=== PATIENT | female | born 1965 | race African-American/Black ===

== ENCOUNTER 2016-06-10 11:27 | Observation (INO) ==
--- NOTE | 2016-06-10 11:57 | EKG Report ---
Stationary ECG Study [facility] ER Test Date: 06/10/2016 11:34:34 AM Pat Name: LAURO GARZA Department: Room: Gender: F Soft Iron Inspector: : 1965 Requested by: Joe Sales Order Number: [id number] Reading MD: JOHN BIRCH Intervals [place] Rate: 64 P: 43 IN: 145 QRS: 56 QRSD: 79 T: 47 QT: 379 QTc: 388 Interpretive Statements SINUS RHYTHM Electronically Signed On 06-11-16 12:27:08 MECHANICAL TECHNICAL SERVICE SPECIALIST by JOHN BIRCH [email or web address]
[2016-06-10] MEDS ORDERED: ALUM/MAG/SIMETH/LIDO VISC 1:1 30 ML BOTTLE PO STA (12:23)
[2016-06-10] MEDS ORDERED: ASPIRIN 325 MG TABLET PO STA (12:23)
[2016-06-10] MEDS ORDERED: ONDANSETRON 4 MG/2 ML VIAL IV STA (12:23)
[2016-06-10] MEDS ORDERED: NITROGLYCERIN 2% OINT 1 INCH/GM PACK TOP STA (12:23)
[2016-06-10] MEDS ORDERED: KETOROLAC 30 MG/1 ML VIAL IV STA (12:23)
--- NOTE | 2016-06-10 12:28 | Emergency Department Note ---
Landon Aponte Meredith, am scribing for, and in the presence of, Joe Soria MD 12:15. Yang Aponte Charles R, MD, personally performed the services described in this documentation, ascribed by Gianna Navarrete in my presence, and it is both accurate and complete . Arrival - Arrival Chief Complaint: Chest Pain Stated Complaint: chest pain going up in throat neck and jaw and ear ED Nursing Triage Note: Pt states that she is having right sided chest pain with radiation to the jaw area onset last night - pt states that the pain got worse this am - pt denies SOB but states that the pain is worse with deep breath Mode of Arrival: Ambulatory Limitations: No Limitations Source: Patient, RN Notes Reviewed - History of Present Illness HPI Narrative: Pt is a 50 y/o black female reporting to the ED with c/o right-sided chest pain with radiation to the jaw which onset last night. Her pain worsened this morning , prompting her visit. She confirms exacerbation of pain with deep inspiration and exertion but denies any shortness of breath, diaphoresis, or nausea. Pt is a current everyday smoker and drinker. Onset (ago): hour(s) Date of Last Menstrual Period: 3 weeks Allergies/Adverse Reactions: Allergies Allergy/AdvReac Type Severity Reaction Status Date / Time No Known Allergies Allergy Verified 06/10/16 11:31 Home Medications: Home Medications Medication Instructions Recorded Confirmed Type Doxycycline Hyclate 100 mg PO DAILY 06/10/16 06/10/16 History hydrOXYzine HCL TAB [Atarax Tab] 10 mg PO QID 06/10/16 06/10/16 History Review of System - Review of System 12 point system: reviewed and no additional remarkable complaints except as stated - Review of System Constitutional: Present: as per HPI. Absent: diaphoresis Respiratory: Present: as per HPI, other (denies SOB) Cardiovascular: Present: as per HPI, chest pain Gastrointestinal: Present: as per HPI. Absent: nausea Medical,Surgical,& Family Hx - Surgical History Abdominal Surgeries: Surgical HX of: Cholecystectomy (2016) Reproductive Surgeries: Surgical HX of;: Section (2004) - Social History Smoking Status: Current every day smoker Frequency of Alcohol Use: Frequently Type of Drug Use: None Exam Vital Signs: Vital Signs Temperature 98.4 F 06/10/16 11:32 Pulse Rate 70 06/10/16 11:32 Respiratory Rate 18 06/10/16 11:41 Blood Pressure 116/72 06/10/16 11:32 O2 Sat by Pulse Oximetry 97 06/10/16 11:32 - General General appearance: alert, in no apparent distress - Head Head exam: Present: atraumatic, normocephalic - Eye Eye exam: Present: normal appearance, PERRL, EOMI - ENT ENT exam: Present: mucous membranes moist, normal external ear exam - Neck Neck exam: Present: full ROM, trachea midline. Absent: tenderness, meningismus , lymphadenopathy, thyromegaly - Chest Chest inspection: Present: symmetric chest wall rise, tenderness (tenderness to palpation just right of the lower sternum). Absent: rash - Respiratory Respiratory exam: Present: normal lung sounds bilaterally. Absent: respiratory distress - Cardiovascular Cardiovascular exam: Present: regular rate, normal rhythm, normal heart sounds. Absent: murmur, rubs, gallop - Abdominal Exam Abdominal exam: Present: soft, normal bowel sounds. Absent: distention, tenderness - Extremities Exam Extremities exam: Present: full ROM, normal capillary refill. Absent: tenderness, pedal edema, calf tenderness - Back Exam Back exam: Present: full ROM. Absent: tenderness - Neurological Exam Neurological exam: Present: alert, oriented X3, CN II-XII intact. Absent: motor sensory deficit - Psychiatric Psychiatric exam: Present: normal affect, normal mood - Skin Skin exam: Present: warm, dry, intact, normal color Course - Consultations Consultation #1: Dr. Wells hospitalist will admit patient Time: 14:03 Results - Labs CBC & BMP: 06/10/16 12:50 06/10/16 12:50 Lab Results: I have reviewed the patients labs Labs: Laboratory Tests 06/10/16 12:50 WBC 13.3 RBC 5.85 H Hgb 13.0 Hct 42.0 MCV 71.8 L MCH 22 L MCHC 31.0 L Plt Count 399 Lymph % (Auto) 18.2 L Neut # (Auto) 9.8 H [place] # (Auto) 0.9 H Laboratory Tests 06/10/16 12:50 INR 1.0 PT Patient/Control Mix 10.0 D-Dimer, Quantitative <= 0.5 Laboratory Tests 06/10/16 12:50 Troponin I < 0.015 Laboratory Tests 0106/10/16 06/10/16 12:50 12:50 12:50 Sodium 142 Potassium 4.3 Chloride 106 Carbon Dioxide 29 BUN 11 Creatinine 0.80 Troponin I < 0.015 B-Natriuretic Peptide 38 Globulin 3.9 H Albumin/Globulin Ratio 0.8 L Lipase 77.0 Disposition Clinical Impression: Atypical chest pain Case discussed with: patient Disposition: Still a Patient Condition: Stable Time of Disposition: 14:03
[2016-06-10] MEDS ORDERED: ALUM/MAG/SIMETH/LIDO VISC 1:1 30 ML BOTTLE PO ONE (12:30)
[2016-06-10] MEDS ORDERED: ASPIRIN 325 MG TABLET ONE (12:30)
[2016-06-10] MEDS ORDERED: NITROGLYCERIN 2% OINT 1 INCH/GM PACK TOP ONE (12:30)
[2016-06-10] MEDS ORDERED: KETOROLAC 30 MG/1 ML VIAL ONE (13:00)
[2016-06-10] MEDS ORDERED: ONDANSETRON 4 MG/2 ML VIAL ONE (13:00)
[2016-06-10 13:06] LABS: Basophils % 0.3 % (0.0-0.8); Eosinophils # 0.1 10*3/uL (0.0-0.87); Eosinophils % 0.9 % (0.00-10.9); Immature Granulocytes % 0.5 %; Immature Granulocytes Absolute 0.07 #; Lymphocytes # 2.4 10*3/uL (1.4-4.0); Lymphocytes % 18.2 % (21.3-54.2); Mean Corpuscular Hemoglobin 22 PG (27-34); Mean Corpuscular Volume 71.8 FL (87-102); Mean Platelet Volume 10.8 FL (9.6-12.0); Monocytes # 0.9 10*3/uL (0.11-0.8); Monocytes % 6.4 % (1.7-12.7); Neutrophils # 9.8 10*3/uL (1.4-7.4); Neutrophils % 73.7 % (38.7-73.9); Platelet Count 399 10*3/uL (130-400); Red Blood Count 5.85 10*6/uL (3.8-5.5); Red Cell Distribution Width 16.6 % (9.3-17.3); White Blood Count 13.3 10*3/uL (4.5-13.71)
[2016-06-10 13:17] LABS: D-Dimer <= 0.5 MG/L FEU
[2016-06-10 13:47] LABS: Albumin 3.5 G/DL (3.4-5.0); Bilirubin,Total 0.5 MG/DL (0.2-1.0); Calcium 8.8 MG/DL (8.5-10.1); Magnesium 2.1 MG/DL (1.8-2.4); Osmolality,Calculated 280.1 MOS/KG (273-304); Potassium 4.3 MMOL/L (3.5-5.1); Total Protein 7.4 G/DL (6.4-8.3)
[2016-06-10] MEDS ORDERED: ACETAMINOPHEN 325 MG TABLET PO PRN (14:12)
[2016-06-10] MEDS ORDERED: MORPHINE 2 MG/1 ML SYRINGE IV PRN (14:12)
[2016-06-10] MEDS ORDERED: ONDANSETRON 4 MG/2 ML VIAL IV PRN (14:12)
--- NOTE | 2016-06-10 14:43 | Hospitalist History & Physical ---
Assessment and Plan (1) Chest pain Status: Acute Assessment and plan: she gives some typical and atypical symptoms for her pain. Some have her symptoms may be GI related as per her history she likely has GERD I will admit to r/o cardiac origin as she does have risk factors of Obesity & smoker she has been given ASA, will give Lovenox and repeat CE, EKG is normal, consult Cards for further risk assessment as she might need NM stress testing will start protonix for possible GI cause Current Visit: Yes (2) GERD (gastroesophageal reflux disease) Status: Acute Assessment and plan: given her history she likely has GERD, start PPI as she uses Tums frequently Current Visit: Yes (3) Obesity Status: Chronic Current Visit: Yes (4) Cigarette smoker Status: Chronic Assessment and plan: counseled and offered cessation. Current Visit: Yes (5) Consumes three beers daily Status: Chronic Current Visit: Yes History of Present Illness Chief complaint: chest pain History of present illness: Ms. Conner is a 50 year old female with no significant past medical history other than acid reflux presents complaining of lower sub-sternum chest pain. She describes as a pressure with radiation up her left chest into her neck and left jaw with a metallic like taste under her tongue. Symptoms started last night while watching TV and lasted about 10 minutes. Again this morning around 10 am she started having symptoms while at the store which lasted longer. She did experience some nausea this morning but no vomiting. She says this feels different from her normal acid reflux which is resolved with Tums. She denies previous history and no known family history of heart disease at an early age. She does smoke about 1 pack of cigarettes every 2 days and drinks 2-3 tall cans of beer daily. Home Medications Medication Instructions Recorded Confirmed Type Doxycycline Hyclate 100 mg PO DAILY 06/10/16 06/10/16 History hydrOXYzine HCL TAB [Atarax Tab] 10 mg PO QID 06/10/16 06/10/16 History Allergies Allergy/AdvReac Type Severity Reaction Status Date / Time No Known Allergies Allergy Verified 06/10/16 11:31 Medical,Surgical,& Family Hx - Medical History Gastrointestinal: History of: GI Problems (Acid Reflux) - Surgical History Abdominal Surgeries: Surgical HX of: Cholecystectomy (2015) Reproductive Surgeries: Surgical HX of;: Section (2004) - Family History Family History: Reports;: Family Hypertension - Social History Smoking Status: Current every day smoker Have you smoked in the last 12 months: Yes Time spent discussing smoking cessation with patient: more than 10 minutes Frequency of Alcohol Use: Frequently Type of Drug Use: None Marital Status: Life Partner Lives With:: Children Functional capacity: independent ambulation - Constitutional Constitutional: Present: as per HPI - EENT Eyes: Present: as per HPI - Cardiovascular Cardiovascular: Present: chest pain at rest, radiating jaw, neck or arm pain, palpitations - Respiratory Respiratory: Present: as per HPI - Gastrointestinal Gastrointestinal: Present: dyspepsia - Genitourinary Genitourinary: Present: as per HPI - Musculoskeletal Musculoskeletal: Present: as per HPI - Neurological Neurological: Present: as per HPI - Psychiatric Psychiatric: Present: as per HPI - Endocrine Endocrine: Present: as per HPI - Hematologic/Lymphatic Hematologic/Lymphatic: Present: as per HPI Exam - Constitutional Vitals: Period Temp Pulse Resp BP Sys/Bronson Pulse Ox Last 24 Hr 98.4 F 60-70 18-20 110-126/57-88 97-100 General appearance: morbidly obese - Head Head exam: Present: normocephalic, atraumatic - Eye Eye exam: Present: EOMI Pupils: Present: KISHORE - ENT ENT exam: Present: normal exam - Neck Neck exam: Present: normal inspection - Respiratory Respiratory exam: Present: clear to auscultation bilaterally - Cardiovascular Cardiovascular exam: Present: regular rate and rhythm (normal S1 S2) - GI/Abdominal GI/Abdominal exam: Present: normal bowel sounds, soft (obese) - Extremities Exam Extremities exam: Present: full ROM - Neurological Exam Neurological exam: Present: alert, oriented X3, normal gait, CN II-XII intact - Psychiatric Psychiatric exam: Present: normal affect, normal mood - Skin Skin exam: Present: normal color, warm, dry, intact Results - Labs CBC & BMP: 06/10/16 12:50 06/10/16 12:50 - EKG EKG results: sinus rhythm, normal axis, normal QRS EKG shows: sinus rhythm - Diagnostic Findings Procedure: Chest x-ray: image reviewed by me (normal heart size, lungs clear), KUB x-ray: report reviewed by me (scattered air fluid levels gas and stool in colon)
[2016-06-10] MEDS: SODIUM CHLORIDE 0.9% 1,000 ML IV SCH (16:30)
[2016-06-10] MEDS: PANTOPRAZOLE 40 MG TABLET PO SCH (16:30)
[2016-06-10] MEDS: ENOXAPARIN 40 MG/0.4 ML SYRINGE SUBCUT SCH (16:30)
--- NOTE | 2016-06-10 16:56 | Cardiology Consult Note ---
History of Present Illness - Data of Consult Patient: new to practice Consult date: 06/10/16 - Consult Narrative History of present illness: Cardiology consult 50-year-old woman admitted with epigastric pain that occurred while drinking beer and watching television. She took Mylanta and Tums without relief and came to the hospital for evaluation. The patient has chronic GE reflux symptoms. Barbecue sauce, onions, [place] peppers, chili, pizza, oranges causes heartburn. The EKG shows normal sinus rhythm with preserved airways and mild ST -T wave changes. Chest x-ray is negative. The patient is currently being treated for scabies with doxycycline 100 mg daily and Atarax 10 mg every 6 hours for itching first troponin is negative d-dimer is negative. The patient does abuse caffeine. She has 8-10 crops of caffeinated coffee every morning and 1 or 2 glasses of iced tea with lunch and she enjoys to binge on chocolate. She also has 3 24 ounce cans of beer nightly and more on the weekends. There is no history of DTs or pancreatitis. She denies melena. No history of peptic ulcer disease. The patient smokes 1 pack per day, more in the weekend and has been swelling since age 22. She is 5 feet 1 inches tall weighs 214 pounds. Weight is been stable. No history of hypertension. No history of stroke. No history of diabetes. She sleeps on one pillow and rarely has nocturia. She does have right knee osteoarthritis and has had her knee injected twice. There is no history of exertional angina. There is no history of syncope or sustained palpitations. No history of heart failure. 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 Her mother had hypertension from dementia age 71. Her father had hypertension and diabetes and from heart failure age 87. She has 8 siblings. 2 brothers have hypertension. One brother has diabetes. One sister has diabetes. Another sister has rheumatoid arthritis. Status post laparoscopic cholecystectomy at [place] August 2015. White count 13.3 Hemoglobin 13.0 hematocrit 42.0 MCV 71.8 INR 1.0 Sodium 142 potassium 4.3 chloride 106 CO2 2911 creatinine 0.80 magnesium 2.1 Blood pressure 126/82 pulse is 78 and regular respirations 16 early arcus no xanthelasma flat neck veins no carotid bruit clear lungs. Regular rhythm. No murmur or gallop. No chest wall tenderness to palpation. Abdomen obese soft benign. Femoral pulses 2+ without bruits of pulses 2+ no edema. Impression Chronic GE reflux using Mylanta and Tums as needed Atypical chest pain Longtime tobacco abuse Scabies currently under treatment with doxycycline and Atarax Caffeine abuse EtOH abuse Obesity 5 feet 1 inches tall, 214 pounds Right knee osteoarthritis Status post laparoscopic cholecystectomy August 2015 at [place] Plan Routine GE reflux precautions reviewed Protonix 40 mg daily Decrease alcohol and caffeine intake these relax the lower esophageal stricture and encourage reflux symptoms Echo Doppler Patient wants to go home tomorrow so she can work on Sunday. Her symptoms are atypical and will schedule outpatient nuclear stress test at the office CC: Rebekah Wells MD - Home Medications and Allergies Home Medications: Home Medications Medication Instructions Recorded Confirmed Type Doxycycline Hyclate 100 mg PO DAILY 06/10/16 06/10/16 History hydrOXYzine HCL TAB [Atarax Tab] 10 mg PO QID 06/10/16 06/10/16 History Allergies/Adverse Reactions: Allergies Allergy/AdvReac Type Severity Reaction Status Date / Time No Known Allergies Allergy Verified 06/10/16 11:31 Medical,Surgical,& Family Hx - Medical History Gastrointestinal: History of: GERD, GI Problems (Acid Reflux) - Surgical History Abdominal Surgeries: Surgical HX of: Cholecystectomy (2015) Reproductive Surgeries: Surgical HX of;: Section (2004) - Family History Family History: Reports;: Family Hypertension - Social History Smoking Status: Current every day smoker Frequency of Alcohol Use: Frequently Type of Drug Use: None Physical Examination Vital Signs Temp Pulse Resp BP Pulse Ox 98.4 F 70 20 116/72 97 06/10/16 11:32 06/10/16 11:32 06/10/16 11:32 06/10/16 11:32 06/10/16 11:32 Result/EKG - Labs CBC & BMP: 06/10/16 12:50 06/10/16 12:50 Labs: Laboratory Results - last 24 hr 06/10/16 16:02 Troponin I < 0.015 Specialty Discharge - Follow Up or Referrals - Discharge Medications No Action hydrOXYzine HCL TAB [Atarax Tab] 10 mg PO QID Doxycycline Hyclate 100 mg PO DAILY
--- NOTE | 2016-06-10 18:37 | EKG Report ---
Stationary ECG Study [facility] ER Test Date: 06/10/2016 3:12:15 PM Pat Name: LAURO GARZA Department: Room: 275 Gender: F Cue Selector: KD : 1965 Requested by: Joe Sales Order Number: [id number] Reading MD: JOHN BIRCH Intervals [place] Rate: 60 P: 46 GA: 153 QRS: 46 QRSD: 75 T: 42 QT: 400 QTc: 401 Interpretive Statements SINUS RHYTHM Electronically Signed On 06-11-16 12:32:34 ICHTHYOLOGY TEACHER by JOHN BIRCH [id number]
--- NOTE | 2016-06-10 18:38 | XRay Report ---
History: Chest pain. History of cigarette smoking Date: 06/10/2016 at 12:40 PM Study: Chest x-ray PA lateral Comparison exam: Chest x-ray September 20, 2014 The cardiac silhouette is not enlarged. There is no mediastinal mass. There is no pulmonary vascular engorgement. There is no pleural effusion. The lungs are well expanded and generally clear. The osseous structures are unremarkable Impression: No acute cardiopulmonary process PROCEDURE INTERPRETED AT [facility] DEPARTMENT OF RADIOLOGY Final Report Signed by: Dr. Jody Siegel
[2016-06-11 05:00] LABS: Basophils % 0.3 % (0.0-0.8); Eosinophils # 0.1 10*3/uL (0.0-0.87); Eosinophils % 0.9 % (0.00-10.9); Hematocrit 37.6 VOL% (35.7-47.0); Hemoglobin 11.5 GM/DL (12.0-16.0); Immature Granulocytes % 0.4 %; Immature Granulocytes Absolute 0.05 #; Lymphocytes # 2.7 10*3/uL (1.4-4.0); Mean Corpuscular HGB Conc 30.6 GM/DL (32-36); Mean Corpuscular Hemoglobin 22 PG (27-34); Mean Corpuscular Volume 72.3 FL (87-102); Mean Platelet Volume 10.8 FL (9.6-12.0); Monocytes # 1.1 10*3/uL (0.11-0.8); Monocytes % 7.5 % (1.7-12.7); Neutrophils # 10.1 10*3/uL (1.4-7.4); Neutrophils % 71.9 % (38.7-73.9); Platelet Count 368 10*3/uL (130-400); Red Cell Distribution Width 16.1 % (9.3-17.3)
[2016-06-11 05:36] LABS: Risk Ratio 3.43; VLDL CHOLESTEROL 21.2 MG/DL
--- NOTE | 2016-06-11 07:54 | Hospitalist Progress Note ---
Assessment and Plan (1) Atypical chest pain Status: Acute Assessment and plan: Patient wants to stay and have her nuclear medicine test done tomorrow morning Current Visit: Yes Hospitalist: Subjective Interval history: Patient without complaints right now, so she wants to stay here and have her nuclear scan done tomorrow Exam - Constitutional Vitals: Period Temp Pulse Resp BP Sys/Bronson Pulse Ox Last 24 Hr 97.1 F-98.9 F 58-70 18-20 110-134/55-85 100-100 Exam: Constitutional: General appearance is normal Eyes: Pupils equal round react to light and accommodation conjunctiva and lids are normal Neck: supple without masses Respiratory: Respiratory effort is normal. Lungs are clear to auscultation. Resonant to percussion. Cardiac: Regular rate and rhythm without murmur rub or gallop. PMI at the midclavicular line by palpation. Carotid arteries 2+ palpation no bruits GI: Bowel sounds normoactive, no tenderness or rebound tenderness, no organomegaly Extremities: no clubbing cyanosis or edema Results - Labs CBC & BMP: 06/11/16 04:09 06/10/16 12:50 Specialty Discharge - Follow Up or Referrals - Discharge Medications No Action hydrOXYzine HCL TAB [Atarax Tab] 10 mg PO QID Doxycycline Hyclate 100 mg PO DAILY
[2016-06-11] MEDS: PANTOPRAZOLE 40 MG TABLET PO SCH (08:30)
--- NOTE | 2016-06-11 09:30 | Cardiology Progress Note ---
Cardiology - PN: Subj Interval history: Cardiology note 50-year-old woman admitted with GE reflux symptoms and atypical chest pain. Patient has decided to stay to have her nuclear stress test tomorrow. She states that if she goes home she will not come back. Telemetry shows steady sinus rhythm. O2 sat 98% on room air. Decreased breath sounds but clear. Regular rhythm. No murmur or gallop. No chest wall tenderness to palpation. Abdomen soft and nontender. Troponin negative 3. Hemoglobin 11.5 hematocrit 37.6 MCV 72 White count 14.0 Impression GE reflux symptoms. Atypical chest pain. Active smoker. Status post laparoscopic cholecystectomy August 2015 at [place] 5 feet 1 inches tall, 214 pounds Caffeine abuse EtOH abuse Scabies Plan Protonix 40 mg daily Routine GE reflux precautions reviewed Echo Doppler Lexiscan cardiac stress test 8 AM tomorrow. I have called nuclear medicine to see if it can be done later today but they have not yet returned my call. Exam (Progress Note) - Constitutional Vitals: Period Temp Pulse Resp BP Sys/Bronson Pulse Ox Last 24 Hr 97.1 F-98.9 F 58-70 18-20 110-134/55-85 95-100 Result/EKG - Labs CBC & BMP: 06/11/16 04:09 06/10/16 12:50 Labs: Laboratory Results - last 24 hr 06/10/16 06/10/16 06/11/16 16:02 18:37 04:09 WBC 14.0 H RBC 5.20 Hgb 11.5 L Hct 37.6 MCV 72.3 L MCH 22 L MCHC 30.6 L RDW 16.1 Plt Count 368 MPV 10.8 Neut % (Auto) 71.9 Lymph % (Auto) 19.0 L [place] % (Auto) 7.5 Eos % (Auto) 0.9 Baso % (Auto) 0.3 Neut # (Auto) 10.1 H Lymph # (Auto) 2.7 [place] # (Auto) 1.1 H Eos # (Auto) 0.1 Baso # (Auto) 0.0 Immature Gran % 0.4 Nucleated RBC % 0.0 Immature Gran # 0.05 Nucleated RBCs # 0.00 Troponin I < 0.015 < 0.015 Triglycerides Cholesterol LDL Cholesterol VLDL Cholesterol HDL Cholesterol Heart Disease Risk Ratio 06/11/16 06/11/16 04:09 04:09 WBC RBC Hgb Hct MCV MCH MCHC RDW Plt Count MPV Neut % (Auto) Lymph % (Auto) [place] % (Auto) Eos % (Auto) Baso % (Auto) Neut # (Auto) Lymph # (Auto) [place] # (Auto) Eos # (Auto) Baso # (Auto) Immature Gran % Nucleated RBC % Immature Gran # Nucleated RBCs # Troponin I < 0.015 Triglycerides 106 Cholesterol 175 LDL Cholesterol 111.0 VLDL Cholesterol 21.2 HDL Cholesterol 51 Heart Disease Risk Ratio 3.43 Specialty Discharge - Follow Up or Referrals - Discharge Medications No Action hydrOXYzine HCL TAB [Atarax Tab] 10 mg PO QID Doxycycline Hyclate 100 mg PO DAILY
[2016-06-11] MEDS: SODIUM CHLORIDE 0.9% 1,000 ML IV SCH (11:38)
[2016-06-11 13:12] VITALS: BP 110/76
--- NOTE | 2016-06-11 14:34 | Cardiology Progress Note ---
Cardiology - PN: Subj Interval history: Cardiology note Normal Lexiscan Cardiolite stress test today. No chest pain or diagnostic EKG changes and tomographic imaging normal. Ventricular function well preserved, ejection fraction 62%. This is a low risk scan. Noncardiac chest pain. The patient has been reassured. Plan Home today okay with me. Continue Protonix 40 mg daily. Routine GE reflux precautions reviewed. I called Dr. Lundy the stress test results. Exam (Progress Note) - Constitutional Vitals: Period Temp Pulse Resp BP Sys/Bronson Pulse Ox Last 24 Hr 97.1 F-98.9 F 58-100 18-20 110-134/55-85 95-100 Result/EKG - Labs CBC & BMP: 06/11/16 04:09 06/10/16 12:50 Labs: Laboratory Results - last 24 hr 06/10/16 06/10/16 06/11/16 16:02 18:37 04:09 WBC 14.0 H RBC 5.20 Hgb 11.5 L Hct 37.6 MCV 72.3 L MCH 22 L MCHC 30.6 L RDW 16.1 Plt Count 368 MPV 10.8 Neut % (Auto) 71.9 Lymph % (Auto) 19.0 L [place] % (Auto) 7.5 Eos % (Auto) 0.9 Baso % (Auto) 0.3 Neut # (Auto) 10.1 H Lymph # (Auto) 2.7 [place] # (Auto) 1.1 H Eos # (Auto) 0.1 Baso # (Auto) 0.0 Immature Gran % 0.4 Nucleated RBC % 0.0 Immature Gran # 0.05 Nucleated RBCs # 0.00 Troponin I < 0.015 < 0.015 Triglycerides Cholesterol LDL Cholesterol VLDL Cholesterol HDL Cholesterol Heart Disease Risk Ratio 06/11/16 06/11/16 04:09 04:09 WBC RBC Hgb Hct MCV MCH MCHC RDW Plt Count MPV Neut % (Auto) Lymph % (Auto) [place] % (Auto) Eos % (Auto) Baso % (Auto) Neut # (Auto) Lymph # (Auto) [place] # (Auto) Eos # (Auto) Baso # (Auto) Immature Gran % Nucleated RBC % Immature Gran # Nucleated RBCs # Troponin I < 0.015 Triglycerides 106 Cholesterol 175 LDL Cholesterol 111.0 VLDL Cholesterol 21.2 HDL Cholesterol 51 Heart Disease Risk Ratio 3.43 Specialty Discharge - Follow Up or Referrals - Discharge Medications No Action hydrOXYzine HCL TAB [Atarax Tab] 10 mg PO QID Doxycycline Hyclate 100 mg PO DAILY
[2016-06-11] MEDS ORDERED: REGADENOSON 0.4 MG/5 ML SYRINGE IV ONE (14:37)
--- NOTE | 2016-06-11 14:46 | Discharge Summary ---
Hospital Course - Hospital Course Hospital Course: Patient with atypical chest pain underwent nuclear medicine scan today Dr. ocampo did a treadmill today call me the results and patient was ready to go home follow-up with her primary care doctor. He recommended she go home on some Protonix because she may very well have reflux as a cause of her symptoms Diagnosis - Discharge Diagnosis (1) Atypical chest pain Status: Acute Specialty Discharge - Follow Up or Referrals - Discharge Medications No Action hydrOXYzine HCL TAB [Atarax Tab] 10 mg PO QID Doxycycline Hyclate 100 mg PO DAILY Discharge Plan - Discharge Data Disposition: Disch To Home/Self Care Condition at Discharge: Stable Discharge Diet: advance to your usual diet Activity: resume usual activities as tolerated Hygiene: no restrictions Weight Bearing at Discharge: full weight bearing - Discharge Medications New Pantoprazole Tab [Protonix Tab] 40 mg PO DAILY #30 tablet Continue hydrOXYzine HCL TAB [Atarax Tab] 10 mg PO QID Doxycycline Hyclate 100 mg PO DAILY - Follow Up or Referral - Forms/Instructions Exam - Constitutional Vitals: Period Temp Pulse Resp BP Sys/Bronson Pulse Ox Last 24 Hr 97.1 F-98.9 F 58-100 18-20 110-134/55-85 95-100 Exam: Constitutional: General appearance is normal Eyes: Pupils equal round react to light and accommodation conjunctiva and lids are normal Neck: supple without masses Respiratory: Respiratory effort is normal. Lungs are clear to auscultation. Resonant to percussion. Cardiac: Regular rate and rhythm without murmur rub or gallop. PMI at the midclavicular line by palpation. Carotid arteries 2+ palpation no bruits GI: Bowel sounds normoactive, no tenderness or rebound tenderness, no organomegaly Extremities: no clubbing cyanosis or edema Discharge Results Procedures and tests throughout hospitalization: Pending Orders 06/11/16 NM olena perf SPECT rest or str Routine Labs on day of discharge: Labs from last 24 hours 06/11/16 06/11/16 06/11/16 04:09 04:09 04:09 WBC 14.0 H RBC 5.20 Hgb 11.5 L Hct 37.6 MCV 72.3 L MCH 22 L MCHC 30.6 L RDW 16.1 Plt Count 368 MPV 10.8 Neut % (Auto) 71.9 Lymph % (Auto) 19.0 L [place] % (Auto) 7.5 Eos % (Auto) 0.9 Baso % (Auto) 0.3 Neut # (Auto) 10.1 H Lymph # (Auto) 2.7 [place] # (Auto) 1.1 H Eos # (Auto) 0.1 Baso # (Auto) 0.0 Immature Gran % 0.4 Nucleated RBC % 0.0 Immature Gran # 0.05 Nucleated RBCs # 0.00 Troponin I < 0.015 Triglycerides 106 Cholesterol 175 LDL Cholesterol 111.0 VLDL Cholesterol 21.2 HDL Cholesterol 51 Heart Disease Risk Ratio 3.43 06/10/16 06/10/16 18:37 16:02 WBC RBC Hgb Hct MCV MCH MCHC RDW Plt Count MPV Neut % (Auto) Lymph % (Auto) [place] % (Auto) Eos % (Auto) Baso % (Auto) Neut # (Auto) Lymph # (Auto) [place] # (Auto) Eos # (Auto) Baso # (Auto) Immature Gran % Nucleated RBC % Immature Gran # Nucleated RBCs # Troponin I < 0.015 < 0.015 Triglycerides Cholesterol LDL Cholesterol VLDL Cholesterol HDL Cholesterol Heart Disease Risk Ratio DS: Provider Date of admission: 06/10/16 14:12 Primary care physician: . No PCP Attending physician on admission: Rebekah Wells MD Consults: 06/10/16 14:36 Consult to Physician [CONS] Routine Comment: chest pain Consulting Provider: Rebekah Wells Consult to Specialist Group: Cardiology When should Consulting Provider be notified: Now Discharging clinician: Elijah Lundy MD
[2016-06-11] MEDS: ENOXAPARIN 40 MG/0.4 ML SYRINGE SUBCUT SCH (16:09)
--- NOTE | 2016-06-11 16:59 | Nuclear Medicine Report ---
LEXISCAN CARDIOLITE GATED SPECT PERFUSION STUDY REFERRING PHYSICIAN: Rebekah Wells MD PROCEDURE: Lexiscan Cardiolite gated SPECT perfusion study. INITIAL IMPRESSION: 1. A 50-YEAR-OLD WOMAN WITH ATYPICAL CHEST PAIN. 2. ABNORMAL EKG. FINAL IMPRESSION: NORMAL LEXISCAN CARDIOLITE GATED SPECT PERFUSION STUDY. I. DESCRIPTION OF PROCEDURE: The patient received 10.0 mCi of Technetium-99 Cardiolite IV and rest imaging was obtained in the routine manner 20 minutes later. The patient then walked for 5 minutes on a low-level treadmill and received 0.4 mg IV Lexiscan followed by 30.0 mCi of Technetium 99m Car diolite IV and pharmacologic stress imaging was obtained in the routine manner 20 minutes later. Se ria electrocardiograms were performed. The initial blood pressure was 116/62 and it was 132/82 imm ediately post Lexiscan. The peak heart rate was 134. II. RESULTS: The patient had no chest pain or arrhythmias and tolerated Lexiscan walk well. The r esting EKG demonstrates normal sinus rhythm with poor R-wave progression across the precordium and S T-T wave changes. With pharmacologic stress, no diagnostic EKG changes occurred. No arrhythmias. Tomographic imaging demonstrates homogeneous uptake of radioisotope in all segments. There is no ev idence for ischemia or scar. Gated SPECT imaging demonstrates normal wall motion and thickening in all segments. The calculated ejection fraction is 62%. III. FINAL IMPRESSION: 1. CLINICALLY AND ELECTROCARDIOGRAPHICALLY NEGATIVE. 2. SCINTIGRAPHICALLY NORMAL PERFUSION STUDY. IV. DISPOSITION: The patient should be reassured regarding the lack of any evidence for significan t coronary artery disease at this time. She had no chest pain or diagnostic EKG changes and tomogra phic imaging is normal. In addition, ventricular function is well preserved, ejection fraction of 6 2%. This is a low-risk scan. Continued medical therapy and risk factor modification recommended. Procedure performed and interpreted at [facility] Department of Radiology.
== END 2016-06-11 16:14 | disposition home or self-care (01) ==
LOC: N.ED 11:27 → N.EDINP 11:27 → N.TELES 15:49
PROVIDERS: ADMIT Family Medicine; ATTEND Family Medicine